=== PATIENT | male | born 1955 ===

== ENCOUNTER 2017-08-04 23:50 | Observation (INO) | payer MEDICARE ==
[2017-08-05] MEDS: Sodium Chloride 0.9% 500 ML IV STA ×2 (00:32→04:12)
[2017-08-05 00:50] LABS: BASO # 0.05 K/mm3 (0.0-2.0); BASO % 0.8 % (0.0-3.0); EOS # 0.1 (0.0-0.7); EOS % 1.2 % (1.5-5.0); GRAN # 3.22 (1.4-6.5); HEMOGLOBIN 11.1 g/dL (14.0-18.0); LYMPH # 2.5 (1.2-3.4); LYMPH % 39.1 % (22.0-35.0); MEAN CELL VOLUME 104.7 fl (80.0-105.0); MEAN CORPUSCULAR HGB CONC 35.4 g/dl (31.0-37.0); MEAN PLATELET VOLUME 8.8 fl (7.0-11.0); MONO # 0.6 (0.1-0.6); MONO % 8.9 % (1.0-6.0); RED CELL DISTRIBUTION WIDTH 13.4 % (11.5-14.5); WHITE BLOOD COUNT 6.4 10^3/ul (4.5-11.0)
--- NOTE | 2017-08-05 01:02 | ED PDOC ---
Arrival/HPI - General Historian: Patient - History of Present Illness Time/Duration: Prior to Arrival Symptom Onset: Sudden <Erica Dean - Last Filed: 08/05/17 01:52> <Alec Segundo - Last Filed: 08/05/17 03:02> - General Chief Complaint: Back Pain Time Seen by Provider: 08/04/17 23:59 - History of Present Illness Narrative History of Present Illness (Text): 08/05/17 01:04 61-year-old male with a history of high blood pressure and smoking presents today with dizziness and a near syncopal episode. Patient states he was walking around the house started to feel dizzy and collapsed to the ground. The patient sustained abrasions to the knees bilaterally. He is complaining of low back and bilateral knee pain. He denies hitting his head. Patient denies loss of consciousness. Patient is still complaining of dizziness. He denies chest pain denies shortness of breath. Patient denies abdominal pain. No nausea or vomiting. No other complaints. (Erica Dean) Past Medical History - Provider Review Nursing Documentation Reviewed: Yes - Travel History Have you recently traveled outside [place] w/in the past 3 mons?: No - Tetanus Immunization Tetanus Immunization: Unknown - Cardiac Hx Hypertension: Yes Hx Pacemaker: No - Pulmonary Hx Respiratory Disorders: No - Neurological Hx Neurological Disorder: No - HEENT Hx HEENT Disorder: No - Renal Hx Renal Disorder: No - Endocrine/Metabolic Hx Endocrine Disorders: No - Hematological/Oncological Hx Blood Disorders: No Hx Blood Transfusions: No Hx Blood Transfusion Reaction: No - Integumentary Hx Dermatological Disorder: No - Musculoskeletal/Rheumatological Hx Musculoskeletal Disorders: No - Gastrointestinal Hx Gastrointestinal Disorders: No - Genitourinary/Gynecological Hx Genitourinary Disorders: No - Psychiatric Hx Depression: Yes Hx Substance Use: No - Anesthesia Hx Anesthesia Reactions: No Hx Malignant Hyperthermia: No <Erica Dean - Last Filed: 08/05/17 01:52> Family/Social History - Physician Review Nursing Documentation Reviewed: Yes Family/Social History: Unknown Family HX Smoking Status: Light Smoker < 10 Cigarettes Daily Hx Alcohol Use: Yes (QUIT 2 YRS AGO NOW SOCIAL) Frequency of alcohol use: Socially Hx Substance Use: No <Erica Dean - Last Filed: 08/05/17 01:52> Allergies/Home Meds <Erica Dean Louisa - Last Filed: 08/05/17 01:52> <Alec Segundo - Last Filed: 08/05/17 03:02> Allergies/Adverse Reactions: Allergies No Known Allergies Allergy (Verified 08/05/17 00:02) Home Medications: Home Meds Medication Instructions Recorded Confirmed Valsartan [Diovan] 360 mg PO QAM 11/02/14 08/05/17 Review of Systems - Review of Systems Constitutional: absent: Fatigue, Fevers Respiratory: absent: SOB, Cough Cardiovascular: absent: Chest Pain, Palpitations Gastrointestinal: absent: Abdominal Pain, Nausea, Vomiting Genitourinary Male: absent: Dysuria Musculoskeletal: Arthralgias, Back Pain. absent: Neck Pain Skin: Other (abrasions, knees bilaterally) Neurological: Dizziness, Gait Changes. absent: Headache Psychiatric: absent: Anxiety, Depression <Erica Dean - Last Filed: 08/05/17 01:52> Physical Exam Vital Signs Reviewed: Yes Temperature: Afebrile Blood Pressure: Normal Pulse: Regular Respiratory Rate: Normal Appearance: Positive for: Well-Appearing, Non-Toxic, Comfortable Pain Distress: None Mental Status: Positive for: Alert and Oriented X 3 - Systems Exam Head: Present: Atraumatic Pupils: Present: PERRL Extroacular Muscles: Present: EOMI Conjunctiva: Present: Normal Mouth: Present: Moist Mucous Membranes Neck: Present: Normal Range of Motion, Paraspinal Tenderness. No: MIDLINE TENDERNESS Respiratory/Chest: Present: Clear to Auscultation, Good Air Exchange. No: Respiratory Distress, Accessory Muscle Use Cardiovascular: Present: Regular Rate and Rhythm, Normal S1, S2. No: Murmurs Abdomen: No: Tenderness, Distention, Peritoneal Signs, Rebound, Guarding Back: Present: Normal Inspection, Midline Tenderness, Paraspinal Tenderness Upper Extremity: Present: Normal ROM, NORMAL PULSES. No: Tenderness Lower Extremity: Present: Normal ROM, Tenderness (b/l knees; there are abrasions and tenderness noted to the anterior aspect of the knees bilaterally. no active bleeding. ), Neurovascularly Intact, Capillary Refill < 2 s. No: Swelling, Erythema, Deformity Neurological: Present: GCS=15, Speech Normal, Motor Func Grossly Intact, Normal Sensory Function. No: Gait Normal (walks with cane; unsteady gait) Skin: Present: Warm, Dry, Normal Color. No: Rashes Psychiatric: Present: Alert, Oriented x 3 <Erica Dean - Last Filed: 08/05/17 01:52> Vital Signs Temp Pulse Resp BP Pulse Ox 08/05/17 00:03 98.6 F 81 18 124/62 98 Medical Decision Making <Erica Dean - Last Filed: 08/05/17 01:52> - RAD Interpretation Impregnating Machine Operator: Radiologist <Alec Segundo - Last Filed: 08/05/17 03:02> ED Course and Treatment: 08/05/17 01:07 61yr old male with dizziness, near syncope, fall with back and b/l knee pain. ct head; ct ls spine: cxr; xray b/l knees; no fracture cbc wnl cmp wnl trop wnl ekg; nsr at 74b/m no st elevations, normal axis, normal intervals. 08/05/17 01:55 case signed out to dr. segundo pending CT results and disposition (Erica Dean) 08/05/17 02:41 reviewed radiology, CT Head shows: Brain: [id number] atrophy. No intracranial hemorrhage. No mass. Several scattered foci of decreased attenuation within periventricular/subcortical white matter. No definite edema. Ventricles: No hydrocephalus. Bones/joints: No acute fracture. Soft tissues: Unremarkable. Sinuses: No acute sinusitis. Mastoid air cells: No mastoid effusion. Orbits: Unremarkable as visualized. IMPRESSION: 1. Nonspecific white matter changes. Acute infarction may be CT occult within first 24 hours. If a focal deficit persists, consider followup CT or MRI for further evaluation. 2. Incidental/non-acute findings are described above. CT Lumbar Spine shows: Vertebrae: No acute fracture. Chronic left L5 pars defect. Minimal anterolisthesis of L5 on S1. Mild facet osteoarthrosis within lower lumbar spine. Discs/spinal canal/neural foramina: Minimal spondylosis. Mild disc bulges at multiple levels. Mild multilevel central canal stenosis. Neuroforaminal narrowing within lower lumbar spine. Soft tissues: Unremarkable. Vasculature: Mild atherosclerotic disease. IMPRESSION: 1. No fracture. 2. If back pain persists, consider MRI for further evaluation. 3. Incidental/non-acute findings are described above. 08/05/17 02:[address] Milligan, who is aware and agrees with plan. Accepts pt in to his service. Pt will go to telemetry observation for near-syncope. Requests Dr. Lugo on consult. (Alec Segundo) - Lab Interpretations Lab Results: 08/05/17 00:40 08/05/17 00:40 Lab Results 08/05/17 01:05: Urine Color Yellow, Urine Appearance Clear, Urine pH 6.0, Ur Specific Firth <= 1.005, Urine Protein Negative, Urine Glucose (UA) Negative, Urine Ketones Negative, Urine Blood Negative, Urine Nitrate Negative, Urine Bilirubin Negative, Urine Urobilinogen 0.2, Ur Leukocyte Esterase Negative 08/05/17 00:40: WBC 6.4, RBC 3.00 L, Hgb 11.1 L, Hct 31.4 L, MCV 104.7, MCH 37.0 H, MCHC 35.4, RDW 13.4, Plt Count 263, MPV 8.8, Gran % 50.0, Lymph % (Auto ) 39.1 H, Bowman % (Auto) 8.9 H, Eos % (Auto) 1.2 L, Baso % (Auto) 0.8, Gran # 3.22, Lymph # (Auto) 2.5, Bowman # (Auto) 0.6, Eos # (Auto) 0.1, Baso # (Auto) 0.05 08/05/17 00:40: Sodium 140, Potassium 4.6, Chloride 101, Carbon Dioxide 28, Anion Gap 16, BUN 10, Creatinine 0.7 L, Est GFR ( Amer) > 60, Est GFR ( Non-Af Amer) > 60, Random Glucose 87, Calcium 8.8, Total Bilirubin 0.3, AST 68 H , ALT 53, Alkaline Phosphatase 118, Lactate Dehydrogenase 575, Total Creatine Kinase 61, Troponin I < 0.01, Total Protein 7.9, Albumin 4.2, Globulin 3.7, Albumin/Globulin Ratio 1.1 - RAD Interpretation Radiology Orders: 08/05/17 00:25 HEAD W/O CONTRAST [CT] Stat LUMBAR SPINE W/O CONTRAST [CT] Stat CHEST PORTABLE [RAD] Stat KNEES BILATERAL [RAD] Stat - Medication Orders Current Medication Orders: Discontinued Medications Sodium Chloride (Sodium Chloride 0.9%) 500 mls @ 999 mls/hr IV .Q31M STA Stop: 08/05/17 00:55 Last Admin: 08/05/17 00:32 Dose: 999 mls/hr eMAR Start Stop Document 08/05/17 00:32 ALEX (Rec: 08/05/17 00:33 ALEX [id number]) Intravenous Solution Start Date 08/05/17 Start Time 00:32 End Date 08/05/17 End time 00:00 Total Infusion Time -32 Tetanus/Reduced Diphtheria/Acell Pertussis (Boostrix Vaccine Inj) 0.5 ml IM .ONCE ONE Stop: 08/05/17 01:06 - PA / INSURANCE ADVISER / Resident Statement / has reviewed & agrees with the documentation as recorded. / has examined the patient and agrees with the treatment plan. <Alec Segundo - Last Filed: 08/05/17 03:02> Disposition/Present on Arrival - Present on Arrival Any Indicators Present on Arrival: No History of DVT/PE: No History of Uncontrolled Diabetes: No Urinary Catheter: No History of Decub. Ulcer: No History Surgical Site Infection Following: None - Disposition Have Diagnosis and Disposition been Completed?: Yes Disposition Time: 01:56 <Erica Dean - Last Filed: 08/05/17 01:52> - Present on Arrival Any Indicators Present on Arrival: No History of DVT/PE: No History of Uncontrolled Diabetes: No Urinary Catheter: No History of Decub. Ulcer: No History Surgical Site Infection Following: None - Disposition Have Diagnosis and Disposition been Completed?: Yes Disposition Time: 03:02 Patient Plan: Observation <Alec Segundo - Last Filed: 08/05/17 03:02> - Disposition Diagnosis: Near syncope Disposition: HOSPITALIZED Patient Problems: Current Active Problems Problem Status Onset Near syncope Acute Condition: STABLE Referrals: Aries Milligan JD, MD [Primary Care Provider] - Follow up with primary Forms: [facility] [employer] ([place])
[2017-08-05 01:08] LABS: ALB/GLOB RATIO 1.1 (1.1-1.8); ALBUMIN 4.2 g/dL (3.0-4.8); ALT/SGPT 53 U/L (7-56); AST/SGOT 68 U/L (17-59); BLOOD UREA NITROGEN 10 mg/dL (7-21); CALCIUM 8.8 mg/dL (8.4-10.5); GFR AFRICAN-AMERICAN > 60; GFR NON-AFRICAN AMERICAN > 60
[2017-08-05 01:19] LABS: TROPONIN I < 0.01 ng/mL
[2017-08-05 01:23] LABS: URINE BILIRUBIN NEGATIVE (NEGATIVE); URINE BLOOD NEGATIVE (NEGATIVE); URINE GLUCOSE (UA) NEGATIVE (NEGATIVE); URINE LEUKOCYTE ESTERASE NEGATIVE Leu/uL (NEGATIVE); URINE PROTEIN NEGATIVE mg/dL (<30 mg/dL); URINE UROBILINOGEN 0.2 E.U./dL (<1 E.U./dL)
[2017-08-05 01:24] LABS: URINE APPEARANCE CLEAR (CLEAR); URINE COLOR YELLOW (YELLOW)
--- NOTE | 2017-08-05 02:33 | CT ---
EXAM: CT Head Without Intravenous Contrast CLINICAL HISTORY: 61 years old, male; Pain; Headache TECHNIQUE: Axial computed tomography images of the head/brain without intravenous contrast. All CT scans at this facility use one or more dose reduction techniques, viz.: automated exposure control; ma/kV adjustment per patient size (including targeted exams where dose is matched to indication; i.e. head); or iterative reconstruction technique. Coronal and sagittal reformatted images were created and reviewed. COMPARISON: No relevant prior studies available. FINDINGS: Brain: [id number] atrophy. No intracranial hemorrhage. No mass. Several scattered foci of decreased attenuation within periventricular/subcortical white matter. No definite edema. Ventricles: No hydrocephalus. Bones/joints: No acute fracture. Soft tissues: Unremarkable. Sinuses: No acute sinusitis. Mastoid air cells: No mastoid effusion. Orbits: Unremarkable as visualized. IMPRESSION: 1. Nonspecific white matter changes. Acute infarction may be CT occult within first 24 hours. If a focal deficit persists, consider followup CT or MRI for further evaluation. 2. Incidental/non-acute findings are described above.
--- NOTE | 2017-08-05 02:39 | CT ---
EXAM: CT Lumbar Spine Without Intravenous Contrast CLINICAL HISTORY: 61 years old, male; Pain; Low back pain; Additional info: Back pain/fall TECHNIQUE: Axial computed tomography images of the lumbar spine without intravenous contrast. All CT scans at this facility use one or more dose reduction techniques, viz.: automated exposure control; ma/kV adjustment per patient size (including targeted exams where dose is matched to indication; i.e. head); or iterative reconstruction technique. Coronal and sagittal reformatted images were created and reviewed. COMPARISON: No relevant prior studies available. FINDINGS: Vertebrae: No acute fracture. Chronic left L5 pars defect. Minimal anterolisthesis of L5 on S1. Mild facet osteoarthrosis within lower lumbar spine. Discs/spinal canal/neural foramina: Minimal spondylosis. Mild disc bulges at multiple levels. Mild multilevel central canal stenosis. Neuroforaminal narrowing within lower lumbar spine. Soft tissues: Unremarkable. Vasculature: Mild atherosclerotic disease. IMPRESSION: 1. No fracture. 2. If back pain persists, consider MRI for further evaluation. 3. Incidental/non-acute findings are described above.
[2017-08-05] MEDS: TDAP Vaccine 0.5 mL Syr IM ONE ×2 (03:28→04:12)
[2017-08-05 03:37] VITALS: O2SAT 96
[2017-08-05 04:05] VITALS: BMI 23.6
--- NOTE | 2017-08-05 09:45 | RAD ---
PROCEDURE: Bilateral Knee Radiographs. HISTORY: fall, knee pain COMPARISON: None. FINDINGS: BONES: Right Knee: Normal. No fracture. Left Knee: Normal. No fracture. JOINTS: Right Knee: Normal. No osteoarthritis. Left knee: Normal. No osteoarthritis. SOFT TISSUES: Right Knee: Normal. Left Knee: Normal. JOINT EFFUSION: Right Knee: None. Left Knee: None. OTHER FINDINGS: None. IMPRESSION: Normal radiographs of the knees.
--- NOTE | 2017-08-05 09:48 | RAD ---
HISTORY: chest pain COMPARISON: Comparison made with prior study 03/02/2014 FINDINGS: LUNGS: No active pulmonary disease. PLEURA: No significant pleural effusion identified, no pneumothorax apparent. CARDIOVASCULAR: Heart size is borderline/mildly enlarged. OSSEOUS STRUCTURES: There are 3 elliptical shaped sclerotic appearing densities overlying the right anterior 2nd 3rd and 4th ribs respectively which are of uncertain etiology though could represent overlying artifact however possibility old healed rib fractures are not excluded. Clinical correlation recommended. The. VISUALIZED UPPER ABDOMEN: Normal. OTHER FINDINGS: None. IMPRESSION: No active disease. Borderline/mild cardiomegaly. . Questionable artifact versus old healed rib fracture deformities right anterior 2nd 3rd and 4th ribs as above. Clinic correlation recommended. Dedicated rib series could be performed for further evaluation.
[2017-08-05 13:44] VITALS: RESP 21; TEMP 98.3
[2017-08-05 13:58] VITALS: BP 148/101; PULSE 86
--- NOTE | 2017-08-05 16:52 | HP ---
DATE OF EXAM: 08/05/2017 HISTORY OF PRESENT ILLNESS: The patient is a 61-year-old male admitted through the emergency department today after falling at home. He denied any loss of consciousness, but states that he felt faint prior to falling. He denied any chest pain, shortness of breath. There was no nausea, no vomiting, no diaphoresis. CT scan of the head in the emergency department showed no acute bleeds or infarcts. CT scan of the lumbosacral spine showed no fractures. The patient is now admitted to the telemetry unit for further evaluation and management. PAST MEDICAL HISTORY: Includes hypertension. PAST SURGICAL HISTORY: The patient has no significant past surgical history. CURRENT MEDICATIONS: Include Diovan mg daily. ALLERGIES: THE PATIENT HAS NO KNOWN ALLERGIES. SOCIAL HISTORY: The patient has a history of tobacco use approximately half a pack per day. There is no history of alcohol or drug use. The patient is independent with ADLs and IADLs. REVIEW OF SYSTEMS: Essentially as above. PHYSICAL EXAMINATION: GENERAL: The patient is a well-developed male in no acute distress. VITAL SIGNS: Blood pressure 163/108, pulse 80, temperature 98.5, respiratory rate 18. HEENT: Head: Normocephalic, atraumatic. Pupils are equal, round and reactive to light. Extraocular movements intact. NECK: Supple. No thyromegaly. No carotid bruits. No adenopathy. LUNGS: Clear. HEART: Regular rate and rhythm with no murmurs, rubs or gallops. ABDOMEN: Soft and nontender. Bowel sounds are normoactive. EXTREMITIES: Without cyanosis, clubbing or edema. There is a small abrasion in the right knee. NEUROLOGICAL: The patient is awake and oriented x3 without focal, sensory or motor deficits. SKIN: Warm and dry. LABORATORY DATA: WBC 6.4, hemoglobin 11.1, hematocrit 31.4. Chemistry: Sodium 140, potassium 4.6, chloride 101, CO2 28, BUN 10, creatinine 0.7, glucose 87. CPK is 61. Troponin is less than 0.01. IMPRESSION: 1. Near syncope. 2. Hypertension. PLAN: We will monitor the patient on telemetry. We will give a dose of losartan for elevated blood pressure. The patient stated the desire to go home today. We will monitor and discharged to home when stable. MEGHANN Goldman MD [facility] # [id number]
--- NOTE | 2017-08-06 14:16 | CARD ---
APPROVED REPORT EKG Measurement Heart [id number] <Conclusion> Normal sinus rhythm Prolonged QT Consider old inferior infarct Abnormal ECG
--- NOTE | 2017-08-07 11:53 | DS ---
HOSPITAL COURSE: The patient is a 61-year-old male admitted through the emergency department on 08/05/2017 after a near-syncopal episode. The patient had an uneventful hospital course and was discharged to home in stable condition on 08/05/2017. Physical examination and vital signs are as per history and physical dictated on 08/05/2017. IMPRESSION: 1. Near syncope. 2. Hypertension. PLAN: The patient was discharged to home in stable condition on the following medication, Diovan 320 mg daily. He will be maintained on a heart-healthy diet. Activity is ad libitum. He is instructed to follow up within the next one to two weeks in my office as an outpatient. MEGHANN Goldman MD
== END 2017-08-05 14:58 | disposition home or self-care (01) ==
LOC: ED 23:50 → ERH 08-05 02:59 → 2RSO 08-05 04:05
PROVIDERS: ADMIT Internal Medicine; ATTEND Internal Medicine
DX: R55 Syncope and collapse (principal); I10 Essential (primary) hypertension; M47.816 Spondylosis without myelopathy or radiculopathy, lumbar region; M25.561 Pain in right knee; M25.562 Pain in left knee; F17.210 Nicotine dependence, cigarettes, uncomplicated; Z91.81 History of falling; Z23 Encounter for immunization
CPT/HCPCS: 70450; 71045; 72131; 73560; 80053; 81003; 82550; 83615; 84484; 85025; 90471; 90715; 93005; 99285; G0378; J7040

== ENCOUNTER 2017-12-04 13:26 | Inpatient (IN) | payer MEDICARE, OTHER ==
--- NOTE | 2017-12-04 13:50 | ED PDOC ---
Arrival/HPI - General Chief Complaint: Psychiatric Evaluation Time Seen by Provider: 12/04/17 13:37 - History of Present Illness Narrative History of Present Illness (Text): 61 y/o M h/o HTN and EtOH abuse presenting to the emergency department for psychiatric evaluation. Patient states he recently lost his home and reports attempting to cope with ingesting alcohol. He admits to drinking 2 beers as well as smoke. He denies suicidal or homicidal ideation, but admits to being frustrated with his current life situation. He reports intermittent shortness of breath and non-productive cough. A more complete HPI was unable to be obtained due to the patient's clinical presentation Time/Duration: Prior to Arrival Symptom Onset: Gradual Severity Level: Moderate Activities at Onset: Rest Context: Home Past Medical History - Provider Review Nursing Documentation Reviewed: Yes - Travel History Have you recently traveled outside [place] w/in the past 3 mons?: No - Tetanus Immunization Tetanus Immunization: Unknown - Cardiac Hx Cardiac Disorders: Yes Hx Hypertension: Yes - Pulmonary Hx Respiratory Disorders: No - Neurological Hx Neurological Disorder: No - HEENT Hx HEENT Disorder: No - Renal Hx Renal Disorder: No - Endocrine/Metabolic Hx Endocrine Disorders: No - Hematological/Oncological Hx Blood Disorders: No Hx Blood Transfusions: No Hx Blood Transfusion Reaction: No - Integumentary Hx Dermatological Disorder: No - Musculoskeletal/Rheumatological Hx Musculoskeletal Disorders: Yes Hx Arthritis: Yes Hx Falls: Yes Other/Comment: back problems - Gastrointestinal Hx Gastrointestinal Disorders: No - Genitourinary/Gynecological Hx Genitourinary Disorders: No - Psychiatric Hx Psychophysiologic Disorder: Yes Hx Anxiety: Yes Hx Depression: Yes Hx Substance Use: No Other/Comment: former smoker, EtoH (now socially) - Anesthesia Hx Anesthesia: Yes Family/Social History - Physician Review Nursing Documentation Reviewed: Yes Family/Social History: Unknown Family HX Smoking Status: Light Smoker < 10 Cigarettes Daily Hx Alcohol Use: Yes (socially) Hx Substance Use: No Allergies/Home Meds Allergies/Adverse Reactions: Allergies No Known Allergies Allergy (Verified 08/05/17 00:02) Home Medications: Home Meds Medication Instructions Recorded Confirmed Valsartan [Diovan] 360 mg PO QAM 11/02/14 08/05/17 Review of Systems - Physician Review All systems were reviewed & negative as marked: Yes - Review of Systems Respiratory: SOB, Cough. absent: Sputum, Wheezing Cardiovascular: absent: Chest Pain Psychiatric: Depression. absent: Anxiety, Suicidal Ideation Physical Exam Vital Signs Reviewed: Yes Vital Signs Temp Pulse Resp BP Pulse Ox 12/04/17 13:32 99.0 F 93 H 18 121/76 95 Temperature: Afebrile Blood Pressure: Normal Pulse: Regular Respiratory Rate: Normal Appearance: Positive for: Well-Appearing, Non-Toxic, Comfortable Mental Status: Positive for: Alert and Oriented X 3 - Systems Exam Head: Present: Atraumatic, Normocephalic Pupils: Present: PERRL Extroacular Muscles: Present: EOMI Mouth: Present: Moist Mucous Membranes Respiratory/Chest: Present: Clear to Auscultation, Good Air Exchange. No: Respiratory Distress, Accessory Muscle Use Cardiovascular: Present: Regular Rate and Rhythm, Normal S1, S2. No: Murmurs Abdomen: Present: Normal Bowel Sounds. No: Tenderness, Distention, Peritoneal Signs Upper Extremity: Present: Normal Inspection. No: Cyanosis, Edema Lower Extremity: Present: Normal Inspection, Capillary Refill < 2 s. No: Edema Neurological: Present: GCS=15, CN II-XII Intact, Speech Normal, Motor Func Grossly Intact, Normal Sensory Function Skin: Present: Warm, Dry, Normal Color. No: Rashes Psychiatric: Present: Alert, Oriented x 3, Normal Insight, Normal Concentration, Intoxicated. No: Suicidal Ideation, Homicidal Ideation Medical Decision Making ED Course and Treatment: Impression 61 y/o M w/ recent EtOH ingestion and emotional duress Differential Diagnoses Include but Are Not Limited to: Alcohol Intoxication Major Depressive Disorder Plan --CXR --Labs --PES consult --UA/UDS/Urine Culture --Reassess & disposition Progress Notes 12/04/17 17:33 Labs reviewed with low WBC and slight anemia. Negative for salicylates and acetaminophen. EtOH level in 300s. PES worker called. 12/04/17 18:17 UA positive for esterase and nitrites. Urine culture sent. Rocephin ordered. Pending PES eval. 12/04/17 18:35 Discussed case with , who is unable to come to the hospital at this time. Requested to be consult on case and for observation. Will place call to . 12/04/17 18:[address] Adams(internal medicine) who accepts the patient onto her service. - RAD Interpretation Narrative RAD Interpretations (Text): 12/04/17 14:44 Chest X-ray reviewed by radiologist, shows: FINDINGS: LUNGS: No active pulmonary disease. PLEURA: No significant pleural effusion identified, no pneumothorax apparent. CARDIOVASCULAR: Normal. OSSEOUS STRUCTURES: No significant abnormalities. VISUALIZED UPPER ABDOMEN: Normal. OTHER FINDINGS: None. IMPRESSION: No active disease. No significant interval change compared to the prior examination(s). Classroom Technology Coach: Radiologist - EKG Interpretation EKG Interpretation (Text): NSR @ 75bpm. LVH. Prolonged QT interval @ 506. Q waves in inferior leads. Interpreted by ED Physician: Yes Type: 12 lead EKG Disposition/Present on Arrival - Present on Arrival Any Indicators Present on Arrival: No History of DVT/PE: No History of Uncontrolled Diabetes: No Urinary Catheter: No History of Decub. Ulcer: No History Surgical Site Infection Following: None - Disposition Have Diagnosis and Disposition been Completed?: Yes Diagnosis: UTI (urinary tract infection), Hypokalemia, Leukopenia Disposition: HOSPITALIZED Disposition Time: 18:40 Patient Plan: Observation Patient Problems: Current Active Problems Problem Status Onset Hypokalemia Acute Leukopenia Acute UTI (urinary tract infection) Acute Condition: STABLE
--- NOTE | 2017-12-04 14:28 | RAD ---
Date of service: 12/04/2017 HISTORY: sob shortness of breath. Vomiting COMPARISON: 08/05/2017. FINDINGS: LUNGS: No active pulmonary disease. PLEURA: No significant pleural effusion identified, no pneumothorax apparent. CARDIOVASCULAR: Normal. OSSEOUS STRUCTURES: No significant abnormalities. VISUALIZED UPPER ABDOMEN: Normal. OTHER FINDINGS: None. IMPRESSION: No active disease. No significant interval change compared to the prior examination(s).
[2017-12-04 15:09] LABS: BASO # 0.02 K/mm3 (0.0-2.0); BASO % 0.7 % (0.0-3.0); EOS # 0.1 (0.0-0.7); EOS % 2.1 % (1.5-5.0); GRAN # 1.1 (1.4-6.5); GRAN % 37.8 % (50.0-68.0); HEMOGLOBIN 10.9 g/dL (14.0-18.0); LYMPH # 1.4 (1.2-3.4); LYMPH % 49.7 % (22.0-35.0); MEAN CORPUSCULAR HEMOGLOBIN 36.1 pg (25.0-35.0); MEAN CORPUSCULAR HGB CONC 34.7 g/dl (31.0-37.0); MEAN PLATELET VOLUME 9.6 fl (7.0-11.0); MONO # 0.3 (0.1-0.6); MONO % 9.7 % (1.0-6.0); RBC 3.02 10^6/uL (3.5-6.1)
[2017-12-04 15:12] LABS: WHITE BLOOD COUNT 2.9 10^3/ul (4.5-11.0)
[2017-12-04 15:18] LABS: ACETAMINOPHEN < 10.0 ug/ml (10.0-20.0); SALICYLATE < 1 mg/dL (2.0-20.0)
[2017-12-04 15:19] LABS: ALB/GLOB RATIO 1.1 (1.1-1.8); ALBUMIN 3.9 g/dL (3.0-4.8); ALT/SGPT 36 U/L (7-56); AST/SGOT 64 U/L (17-59); BLOOD UREA NITROGEN 10 mg/dL (7-21); CALCIUM 8.8 mg/dL (8.4-10.5); GFR NON-AFRICAN AMERICAN > 60
[2017-12-04] MEDS ORDERED: Potassium Chloride 20 mEq/15 ml LIQ UD PO STA (15:25)
[2017-12-04 17:59] LABS: URINE BILIRUBIN NEGATIVE (NEGATIVE); URINE BLOOD NEGATIVE (NEGATIVE); URINE GLUCOSE (UA) NEGATIVE (NEGATIVE); URINE LEUKOCYTE ESTERASE MODERATE Leu/uL (NEGATIVE); URINE PROTEIN NEGATIVE mg/dL (<30 mg/dL); URINE UROBILINOGEN 0.2 E.U./dL (<1 E.U./dL)
[2017-12-04 18:04] LABS: URINE APPEARANCE CLEAR (CLEAR); URINE COLOR YELLOW (YELLOW)
[2017-12-04] MEDS ORDERED: cefTRIAXone 1 gm 1 GM/100 ML BAG IVPB STA (18:15)
[2017-12-04 18:24] LABS: BARBITURATES, UR NEGATIVE (NEGATIVE); OPIATES, UR NEGATIVE (NEGATIVE); PHENCYCLIDINE, UR NEGATIVE (NEGATIVE)
[2017-12-04 18:26] LABS: URINE BACTERIA MANY (NEG); URINE RBC NEGATIVE /hpf (0-2)
[2017-12-04 18:33] LABS: BENZODIAZEPINES, UR NEGATIVE (NEGATIVE)
[2017-12-04] MEDS ORDERED: Naloxone 0.4 mg/ml Inj (Adult) ONE (19:31)
[2017-12-04 19:42] LABS: VENOUS BLOOD GAS BASE EXCESS 2.4 mmol/L (0.0-2.0); VENOUS BLOOD GAS PO2 91 mm/Hg (30-55); VENOUS BLOOD PH 7.36 (7.32-7.43)
[2017-12-04] MEDS: Folic Acid 1 MG, Thiamine 100 MG, Multivitamin (MVI) 10 ML in Dextrose 5% In Water 1,00... IV SCH (23:12)
[2017-12-05 00:03] VITALS: BMI 22.0
[2017-12-05 07:52] LABS: VENOUS BLOOD GAS BASE EXCESS 3.2 mmol/L (0.0-2.0); VENOUS BLOOD GAS PO2 119 mm/Hg (30-55); VENOUS BLOOD PH 7.43 (7.32-7.43)
[2017-12-05 09:08] LABS: HDL CHOLESTEROL 73 mg/dL (29-60); IRON 198 ug/dL (45-180)
[2017-12-05 09:17] LABS: % IRON SATURATION 75 % (20-55); TOTAL IRON BINDING CAPACITY 262 ug/dL (261-462)
--- NOTE | 2017-12-05 09:17 | CARD ---
APPROVED REPORT Date of service: 12/04/2017 EKG Measurement Heart [id number] <Conclusion> Normal sinus rhythm Inferior infarct, old LVH by voltage NSSTW changes Prolonged QTc
[2017-12-05 09:19] LABS: LDL CHOLESTEROL 75 mg/dL (0-129)
[2017-12-05] MEDS: cefTRIAXone 1 gm 1 GM/100 ML BAG IVPB SCH (09:59)
[2017-12-05] MEDS: Folic Acid 1 MG, Thiamine 100 MG, Multivitamin (MVI) 10 ML in Dextrose 5% In Water 1,00... IV SCH (11:14)
[2017-12-05 17:38] LABS: FOLATE > 20.0 ng/mL
[2017-12-05] MEDS: Albuterol-Ipratrop 3 mg / 0.5 (3 ml) UD IH SCH (19:49)
--- NOTE | 2017-12-06 01:35 | CON ---
DATE: 12/05/2017 PULMONARY CONSULT REFERRING PHYSICIAN: Marisa Corado MD. REASON FOR CONSULT: Has asthma, hypertension, history of alcohol abuse. HISTORY OF PRESENT ILLNESS: This is a 61-year-old gentleman, known history of for hypertension, history of excessive alcohol use, has asthma with seasonal allergies. Comes into ER, recently lost his home. Apparently, he has been a heavy drinker. Has mild abdominal pain. Admits to have snoring, daytime sleepy and tired. No dysuria. No leg pain. No leg swelling. PAST MEDICAL HISTORY: Childhood asthma, hypertension, alcohol abuse, degenerative joint disease, anxiety disorder. SOCIAL HISTORY: He is . Positive history of smoking. Yes drinks alcohol. FAMILY HISTORY: No significant cardiopulmonary disease reported. ALLERGIES: NONE KNOWN. MEDICATIONS: He is on folic acid 1 mg daily, Librium 50 mg three times a day, Pepcid 40 mg daily, Risperdal 0.5 mg twice a day, Rocephin 1 g IV daily, multivitamins daily, vitamin B1 at 100 mg daily. REVIEW OF SYSTEMS: No headache, no rhinitis. Admits to have snoring, daytime sleepy, has seasonal allergies. No chest pain. No nausea. No vomiting, diarrhea, leg pain, leg swelling. PHYSICAL EXAMINATION: GENERAL: No acute distress. VITAL SIGNS: Temp is 98, heart rate is 82, respiratory rate is 18, blood pressure 155/88, pulse ox 98% on room air. HEENT: Moist mucous membranes. Crowded airway. NECK: Supple. No JVD. LUNGS: Have a few scattered rhonchi. HEART: S1 and S2. ABDOMEN: Soft, nontender. No organomegaly. EXTREMITIES: No edema. NEUROLOGICAL: Awake and alert. Follows simple commands. LABORATORY DATA: Shows hemoglobin 10.9, hematocrit 31.4, WBC 2.9, platelet is 90. VBG showed pH 7.43, pCO2 is 42, O2 of 119. Sodium 146, potassium 2.4, chloride 112, bicarbonate 24, BUN 10, creatinine 0.9, glucose is 89, calcium is 8.8, hemoglobin A1c 5.1, iron is 198, AST 64, ALT 36, alk phos is 97, cholesterol is 166, B12 of 440, folate is more than 20. Urinalysis shows wbc 10-15. In the ER, alcohol level was 371. Chest x-ray is unremarkable. No infiltrate. IMPRESSION AND PLAN: Chronic obstructive lung disease, hypertension, alcohol abuse, anxiety/depression, recently lost home, ex- is at bedside. Agree with Dr. Corado with present management. Alcohol withdrawal treatment. We will add inhaled bronchodilator, gastric prophylaxis, deep venous thrombosis prophylaxis. Fall precaution. Will need pulmonary function test upon discharge as outpatient, probably need sleep study upon discharge as outpatient. Thank you and we will follow with you. Evonne Schmid MD
[2017-12-06] MEDS: Albuterol-Ipratrop 3 mg / 0.5 (3 ml) UD IH SCH ×2 (01:59→07:44)
--- NOTE | 2017-12-06 03:40 | CON ---
DATE: 12/05/2017 HISTORY OF PRESENT ILLNESS: In short, the patient is 61-year-old male with history of hypertension and alcohol use disorder. The patient came to the hospital for psychiatric evaluation. The patient stated that he recently lost his home and attempting to cope with ingesting alcohol, by drinking a lot. The patient was not able to pay his rent. Psych consult was called for evaluation of depression. The patient was seen and examined. The patient presented to be very confused. The patient was not able to provide any history. The patient is rumbling something as per nurse. The patient was very confused, trying to wash summers, was redirected. During this chief underwriter interview, the patient was giving random answers which are not related to the questions being asked, very hard to interview. Vital signs seems to be stable. Temperature 98.4, blood pressure 155/98, respirations 18, oxygen saturation is 99. Medications reviewed. The patient is on Rocephin, Librium 50 mg three times a day was initiated by this chief underwriter. The patient was on folic acid, multivitamins, Risperdal was started because of the confusion and delirium stage and the patient also on vitamin B1. Labs reviewed. WBC cells 2.9, potassium and chloride, electrolyte imbalance. Leukocyte esterase moderate. Toxicology, alcohol level was 371. This chief underwriter reviewed the previous history. The patient does not have history of mental illness, never been admitted to the Psych Unit. MENTAL STATUS EXAMINATION: As this chief underwriter described above. The patient was sleepy, but easily arousable. When he talks, make no sense, random answers. When this chief underwriter asked if the patient knows where he is, the patient answers, "nurses supposed to know," the patient was just staring at this chief underwriter. The patient was not able to describe his mood. Thought process disorganized. Thought content, the patient obviously is not doing well. The patient was trying to clean the summers, redirected immediately. Insight and judgment impaired. Impulses are unpredictable. IMPRESSION: Most likely, the patient is in delirium stage due to alcohol withdrawal symptoms as well as electrolyte imbalance as well as urinary tract infection. PLAN: Continue current management. Continue current medication. Librium was started as scheduled as well as Risperdal. We will follow up and advise accordingly. Thank you very much for letting me participate in the care of your patient. Arti Naranjo MD [facility] # [id number]
--- NOTE | 2017-12-06 04:29 | HP ---
date 12/05/17 CHIEF COMPLAINT: Fatigue, tired, tremors, Psych evaluation. HISTORY OF PRESENT ILLNESS: Mr. Killian Wheatley is a 61-year-old male with history of hypertension, ethanol abuse, came to the emergency department for psychiatric evaluation, has tremors, fatigue, tired. The patient states that he recently lost his home, reports attempting to cope with ingesting alcohol, he admits to drinking 2 beer as well as smoke. He denies suicidal or homicidal ideation, but admits to being frustrated with his current life situation. He reports intermittent shortness of breath and nonproductive cough. The patient is a very poor historian. PAST MEDICAL HISTORY: Hypertension, arthritis, fall, back problem, anxiety, depression. FAMILY HISTORY: Father and mother noncontributory. HABITS: Light smoking. Alcohol, yes. Substance abuse, no. ALLERGIES: THE PATIENT IS NOT ALLERGIC WITH ANY MEDICATIONS. HOME MEDICATIONS: Valsartan. REVIEW OF SYSTEMS: The patient was seen and examined on the bedside, looking comfortable. No headache. No dizziness. No chest pain, no palpitation. No fever, no chills. PHYSICAL EXAMINATION: VITAL SIGNS: Temperature 99, pulse 93, respiratory rate 18, blood pressure 120/76, pulse oximetry is 95%. HEENT: Head: Normocephalic, atraumatic. Eyes: PERRLA. Extraocular muscles are intact. Conjunctivae are clear. Nose patent. Mucous membranes moist. NECK: Supple. No carotid bruit. No JVD or thyromegaly. CHEST: Bilaterally symmetrical. HEART: S1 and S2 positive. LUNGS: Clear to auscultation. Good air exchange. ABDOMEN: Soft. Bowel sounds are present. No organomegaly. EXTREMITIES: No edema. No cyanosis. NEUROLOGIC: The patient is awake and alert, moving all 4 extremities, no focal deficit. LABORATORY DATA: White blood cells 3.9, hemoglobin 10.9, hematocrit 31.4, platelets 90. Sodium 146, potassium 3.4, BUN 10, creatinine 0.9, glucose 89. Iron 198. ASSESSMENT AND PLAN: Mr. Killian Wheatley is a 61-year-old male with leukopenia, anemia, thrombocytopenia, actually pancytopenia, hypokalemia, hyperchloremia, abnormal liver function test, urinary tract infection, alcohol level 371, came due to ethanol abuse, want to quit, history of hypertension, depression, anxiety, but not suicidal or homicidal, former smoker. We admitted the patient, banana bag given. Librium and Ativan given. Psych consult called, waiting for the Psych input. Gastrointestinal and deep vein thrombosis prophylaxes. The patient was on Librium, but still anxious, now started Ativan. We will follow up. Marisa Corado MD MTDD
[2017-12-06 07:15] LABS: HEMOGLOBIN 11.2 g/dL (14.0-18.0); MEAN CELL VOLUME 103.9 fl (80.0-105.0); MEAN CORPUSCULAR HEMOGLOBIN 36.4 pg (25.0-35.0); MEAN PLATELET VOLUME 9.4 fl (7.0-11.0); RBC 3.08 10^6/uL (3.5-6.1)
[2017-12-06 07:17] LABS: WHITE BLOOD COUNT 2.8 10^3/ul (4.5-11.0)
[2017-12-06 07:27] LABS: IRON 84 ug/dL (45-180)
[2017-12-06 07:30] LABS: BLOOD UREA NITROGEN 13 mg/dL (7-21); CALCIUM 8.9 mg/dL (8.4-10.5); GFR NON-AFRICAN AMERICAN > 60; HDL CHOLESTEROL 69 mg/dL (29-60)
[2017-12-06 07:38] LABS: LDL CHOLESTEROL 71 mg/dL (0-129)
[2017-12-06 07:41] LABS: % IRON SATURATION 30 % (20-55); TOTAL IRON BINDING CAPACITY 278 ug/dL (261-462)
[2017-12-06 08:15] VITALS: RESP 18; TEMP 97.8; O2SAT 78
[2017-12-06] MEDS: cefTRIAXone 1 gm 1 GM/100 ML BAG IVPB SCH (09:19)
[2017-12-06] MEDS ORDERED: Multivitamin Therapeutic Tab PO SCH (10:00)
[2017-12-06] MEDS ORDERED: Enoxaparin 40 mg Syringe SC SCH (10:00)
[2017-12-06 10:02] VITALS: BP 119/78; PULSE 87
[2017-12-06 12:56] LABS: FOLATE 16.6 ng/mL
--- NOTE | 2017-12-06 18:40 | CP.PCM.PCO ---
Physician Communication Note - Physician Communication Note Physician Communication Note: pt was d/c AMA by medical team
== END 2017-12-06 13:11 | disposition left against medical advice (07) | DRG 894 ==
LOC: ED 13:26 → ERH 18:54 → 5RSO 22:52 → OBSVTOIN 12-06 00:49
PROVIDERS: ADMIT Internal Medicine; ATTEND Internal Medicine
DX: F10.239 Alcohol dependence with withdrawal, unspecified (principal); N39.0 Urinary tract infection, site not specified; F10.221 Alcohol dependence with intoxication delirium; F32.9 Major depressive disorder, single episode, unspecified; I10 Essential (primary) hypertension; E87.6 Hypokalemia; J44.9 Chronic obstructive pulmonary disease, unspecified; F41.9 Anxiety disorder, unspecified; Y90.8 Blood alcohol level of 240 mg/100 ml or more; Z87.891 Personal history of nicotine dependence

== ENCOUNTER 2017-12-07 22:16 | Emergency (ER) | payer MEDICARE, OTHER ==
[2017-12-07 22:48] VITALS: BMI 21.2
[2017-12-07 22:49] VITALS: RESP 18; TEMP 98.5
--- NOTE | 2017-12-07 23:35 | ED PDOC ---
Arrival/HPI - General Chief Complaint: Abdominal Pain Time Seen by Provider: 12/07/17 23:32 Historian: Patient - History of Present Illness Narrative History of Present Illness (Text): 12/07/17 23:05 61 year old homeless male, whose past medical history includes hypertension and alcohol abuse, presents to the emergency department requesting a place to sleep. Patient also is requesting to take a shower and states that is why he is here. Patient denies any complaints at this time. Patient denies any fever, chills, chest pain, shortness of breath, nausea, vomiting, diarrhea, urinary symptoms, back pain, neck pain, headache, dizziness, or any other complaints. Context: Other (homeless) Past Medical History - Provider Review Nursing Documentation Reviewed: Yes - Infectious Disease Hx of Infectious Diseases: None - Tetanus Immunization Tetanus Immunization: Unknown - Cardiac Hx Cardiac Disorders: Yes Hx Hypertension: Yes - Pulmonary Hx Respiratory Disorders: No - Neurological Hx Neurological Disorder: No - HEENT Hx HEENT Disorder: No - Renal Hx Renal Disorder: No - Endocrine/Metabolic Hx Endocrine Disorders: No - Hematological/Oncological Hx Blood Disorders: No Hx Blood Transfusions: No Hx Blood Transfusion Reaction: No - Integumentary Hx Dermatological Disorder: No - Musculoskeletal/Rheumatological Hx Musculoskeletal Disorders: Yes Hx Arthritis: Yes Hx Falls: Yes Other/Comment: back problems - Gastrointestinal Hx Gastrointestinal Disorders: No - Genitourinary/Gynecological Hx Genitourinary Disorders: No - Psychiatric Hx Psychophysiologic Disorder: Yes Hx Anxiety: Yes Hx Depression: Yes Hx Substance Use: No Other/Comment: former smoker, EtoH (now socially) - Surgical History Other/Comment: smoker. alcohol use - Anesthesia Hx Anesthesia: Yes Family/Social History - Physician Review Nursing Documentation Reviewed: Yes Family/Social History: No Known Family HX Smoking Status: Light Smoker < 10 Cigarettes Daily Hx Alcohol Use: Yes (socially) Hx Substance Use: No Allergies/Home Meds Allergies/Adverse Reactions: Allergies No Known Allergies Allergy (Verified 08/05/17 00:02) Home Medications: Home Meds Medication Instructions Recorded Confirmed Valsartan [Diovan] 360 mg PO QAM 11/02/14 08/05/17 Review of Systems - Physician Review All systems were reviewed & negative as marked: Yes - Review of Systems Constitutional: absent: Fevers, Other (Chills) Respiratory: absent: SOB Cardiovascular: absent: Chest Pain Gastrointestinal: absent: Diarrhea, Nausea, Vomiting Genitourinary Male: absent: Dysuria, Frequency, Hematuria Musculoskeletal: absent: Back Pain, Neck Pain Neurological: absent: Headache, Dizziness Physical Exam - Physical Exam Narrative Physical Exam (Text): Gen: VS reviewed, alert, well developed, well nourished, nontoxic, mild distress. ENT: normal pharynx. Eye: EOMI, PERRL. Neck: no JVD, supple, no adenopathy. CV: regular rate, regular rhythm, no rubs, no murmur, no gallops, S1, S2, pulses equal and strong. Pulm: no distress, clear to auscultation, no wheeze, no rhonchi, breath sounds equal, no rales. Abd: soft, nontender, no guarding, no rebound, no rigidity, normal bowel sounds. Ext: no edema. Skin: good color, no rash, no cyanosis. Psych: responds appropriately to questions, normal affect. Neuro: oriented x 3, CN2-12 intact grossly, motor intact, sensation intact. Vital Signs Reviewed: Yes Vital Signs Temp Pulse Resp BP Pulse Ox 12/07/17 22:48 98.5 F 104 H 18 138/88 97 Temperature: Afebrile Blood Pressure: Normal Pulse: Tachycardic Respiratory Rate: Normal Medical Decision Making ED Course and Treatment: 12/07/17 23:05 Impression: 61 year old homeless male presents requesting a place to sleep and shower. Plan: -- Reassess and disposition Prior Visits: Notes and results from previous visits were reviewed. Progress Notes: 12/08/17 02:54 patient does not have an acute medical complaint. patient is simply requesting a bed to rest in due to homelessness. Due to the sudden changed in weather, patient dose pose a risk for hypopthermia. 12/08/17 05:45 - Scribe Statement The provider has reviewed the documentation as recorded by the Renee Jimenez Provider Scribe Attestation: All medical record entries made by the Jameelibryan were at my direction and personally dictated by me. I have reviewed the chart and agree that the record accurately reflects my personal performance of the history, physical exam, medical decision making, and the department course for this patient. I have also personally directed, reviewed, and agree with the discharge instructions and disposition. Disposition/Present on Arrival - Present on Arrival Any Indicators Present on Arrival: No History of DVT/PE: No History of Uncontrolled Diabetes: No Urinary Catheter: No History of Decub. Ulcer: No History Surgical Site Infection Following: None - Disposition Have Diagnosis and Disposition been Completed?: Yes Diagnosis: Homelessness, Living in homeless prison Disposition: HOME/ ROUTINE Disposition Time: 05:45 Patient Plan: Discharge Patient Problems: Current Active Problems Problem Status Onset Homelessness Acute Living in homeless prison Acute Condition: STABLE Additional Instructions: CAMILO NIXON, thank you for letting us take care of you today. Your provider was Dr. Andrew Chris and you were treated for homelessless. The emergency medical care you received today was directed at your acute symptoms. If you were prescribed any medication, please fill it and take as directed. It may take several days for your symptoms to resolve. Return to the Emergency Department if your symptoms worsen, do not improve, or if you have any other problems. Please contact your doctor or call one of the physicians/clinics you have been referred to that are listed on the Patient Visit Information form that is included in your discharge packet. Bring any paperwork you were given at discharge with you along with any medications you are taking to your follow up visit. Our treatment cannot replace ongoing medical care by a primary care provider outside of the emergency department. Thank you for allowing the [facility] team to be part of your care today. If you had an X-Ray or CT scan: A Radiologist will review the ED reading if any change in treatment is needed we will contact you. If you had a blood, urine, or wound culture: It will take several days for the results, if any change in treatment is needed we will contact you. If you had an STI test: It will take 48 hours for the results. Please call after 1 week if you have not heard back. Referrals: Aries Mckeon MD [Primary Care Provider] - Follow up with primary Forms: [employer] (Armenian)
[2017-12-08 03:55] VITALS: O2SAT 100
[2017-12-08 06:38] VITALS: BP 135/78; PULSE 88
== END 2017-12-08 06:00 | disposition home or self-care (01) ==
LOC: ED 22:16
DX: Z59.0 Homelessness (principal)